=== PATIENT | male | born 1955 ===

== ENCOUNTER → 2017-09-03 | Outpatient (CLI) | payer OTHER ==
--- NOTE | 2017-09-08 15:05 | CPEKG ---
Heart Rate: 70 RR Interval: 857 P-R Interval: 192 QRSD Interval: 94 QT Interval: 416 QTC Interval: 449 P [place]: 44 QRS [place]: 31 T Wave [place]: 6 EKG Severity - NORMAL ECG - EKG Impression: SINUS RHYTHM EKG Impression: DELAYED R-WAVE PROGRESSION Electronically Signed By: Sheryl Ryder 08-Sep-2017 20:26:25
== END ==
LOC: FPAT 12:40
PROVIDERS: ATTEND Orthopaedic Surgery
DX: Z01.810 Encounter for preprocedural cardiovascular examination (principal); M25.551 Pain in right hip

== ENCOUNTER 2017-09-08 08:12 | Inpatient (IN) | payer OTHER ==
[2017-09-03 13:20] LABS: PLATELET COUNT 233 10^3/uL (150-400)
--- NOTE | 2017-09-06 18:51 | GHP ---
[f rep st] PREOP HISTORY AND PHYSICAL CURRENT COMPLAINT: Right hip pain. HISTORY OF PRESENT ILLNESS: The patient is a 61-year-old male with a several year history of right h ip pain worsening with use and with time despite multiple conservative measures. X-ray exam reveals [id number] arthritic changes. He wishes to have surgery in order to resolve the problem. He lists no drug allergies. CURRENT MEDICATIONS: Include atorvastatin, enoxaparin, lisinopril, Ventolin. 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 PAST SURGICAL HISTORY: Includes bilateral knee replacements and a left ACL reconstruction. SOCIAL HISTORY: He has never been a smoker and he is a social drinker. PHYSICAL EXAMINATION: HEENT: The patient's pupils are equal, round, and reactive to light. CHEST: Clear to auscultation. HEART: A regular rate and rhythm. ABDOMEN: Soft and nontender. EXTREMITI ES: He has limited range of motion, internal-external rotation to his hip and pain at the ends of th ose ranges of motion. X-ray exam revealed [id number]-[id number] osteoarthritic changes to the right hip. ASSESSMENT: The patient is status post a right hip osteoarthritis. PLAN: To take him to the operating room for multiple right total hip arthroplasty. /[id number]/MODL
[2017-09-08] MEDS ORDERED: LIDOCAINE 1% 2 ML INJ ID PRN (08:45)
[2017-09-08] MEDS ORDERED: LR 1,000 ML IV ONE (08:45)
[2017-09-08] MEDS ORDERED: BACITRACIN 50,000 UNITS/10 ML SYR IRR ONE (08:52)
[2017-09-08] MEDS ORDERED: POLYMYXIN B SULFATE 500,000 UNIT/10 ML SYR IRR ONE (08:53)
[2017-09-08] MEDS ORDERED: CALCIUM CHLORIDE 1 GM/10 ML INJ ONE (08:54)
[2017-09-08] MEDS ORDERED: BUPIVACAINE 0.5% 30 ML SDV ONE (08:54)
[2017-09-08] MEDS ORDERED: THROMBIN (BOVINE) 20,000 UNIT VIAL TP ONE (08:54)
[2017-09-08] MEDS ORDERED: TRANEXAMIC ACID 3,000 MG in NS (SYRINGE) 50 ML IRR ONE (09:01)
[2017-09-08] MEDS ORDERED: ROPIVACAINE 0.2% 80 MG, EPINEPHrine 0.2 MG, KETOROLAC TROMETHAMINE 30 MG, morphINE 10 M... IU ONE (09:01)
[2017-09-08] MEDS ORDERED: ceFAZolin 2 GM/DEXTROSE 100 ML IV ONE (09:01)
[2017-09-08] MEDS ORDERED: ACETAMINOPHEN 500 MG TAB PO ONE (09:01)
[2017-09-08] MEDS ORDERED: PREGABALIN 150 MG CAP PO ONE (09:01)
--- NOTE | 2017-09-08 09:01 | PDHPUP ---
History & Physical Update H&P update statement: This history and physical update is based on an assessment of the patient which was completed after admission or registration (within 24 hours), but prior to the surgery/procedure. H&P update: H&P reviewed & patient examined, no change in patient's condition since H&P completed
[2017-09-08] MEDS ORDERED: ALBUTEROL 60 PUFFS/8 GM MDI IH PRN (09:02)
[2017-09-08] MEDS ORDERED: MIDAZOLAM 2 MG/2 ML VIAL IVP ONE (09:20)
[2017-09-08] MEDS ORDERED: MIDAZOLAM 2 MG/2 ML VIAL ONE (09:22)
[2017-09-08] MEDS ORDERED: CEFAZOLIN 2 GM/DEXTROSE/100 ML BAG IV ONE (09:23)
--- NOTE | 2017-09-08 09:28 | PDANEPAE ---
ANE History of Present Illness DJD L hip s/f L ENRIQUE ANE Past Medical History - Cardiovascular History Hx Hypertension: Yes Hx Arrhythmias: No Hx Chest Pain: No Hx Coronary Artery / Peripheral Vascular Disease: No Hx CHF / Valvular Disease: No Hx Palpitations: No Cardiovascular History Comment: blood clot right leg 7 yrs - Pulmonary History Hx Asthma/Reactive Airway Disease: Yes Hx Recent Upper Respiratory Infection: No Hx Oxygen in Use at Home: No Hx Sleep Apnea: Yes Sleep Apnea Screening Result - Last Documented: Positive Pulmonary History Comment: seasonal allergens triggers asthma, uses inhaler. CHELSEY uses CPAP - Neurologic History Hx Cerebrovascular Accident: No Hx Seizures: No Hx Dementia: No - Endocrine History Hx Diabetes: No - Renal History Hx Renal Disorders: Yes Renal History Comment: post -op decrease kidney function - Liver History Hx Hepatic Disorders: No - Neurological & Psychiatric Hx Hx Neurological and Psychiatric Disorders: Yes Neurological / Psychiatric History Comment: tingling in right toes - Cancer History Hx Cancer: No - Congenital Disorder History Hx Congenital Disorders: Yes Congenital History Comment: hicklers syndrome - GI History Hx Gastrointestinal Disorders: No - Other Health History Other Health History: broken teeth in back top - Chronic Pain History Chronic Pain: No - Surgical History Prior Surgeries: 3 yrs ago parathyroidectomy ANE Review of Systems Review of Systems: - Exercise capacity METS (RN): 3 METS (EKG NSR) ANE Patient History - Allergies Allergies/Adverse Reactions: No Allergies [NKDA] Allergy (Verified 08/21/17 15:46) BANDAID Allergy (Mild, Uncoded 08/21/17 15:46) ITCHY, RASH, SORE - Home Medications Home medications: home medication list seen and reviewed Home Medications: Acetaminophen [Tylenol ES 500 mg (*)] 1,000 mg PO DAILY 08/21/17 [Last Taken Unknown] Albuterol [Proventil Inhaler HFA (*)] 1 puffs IH DAILY PRN 08/21/17 [Last Taken Unknown] Atorvastatin Calcium [Lipitor 10 mg (*)] 10 mg PO DAILY@1800 08/21/17 [Last Taken Unknown] Ibuprofen [Motrin (*)] 200 mg PO DAILY 08/21/17 [Last Taken Unknown] Lisinopril [Zestril 20 mg (*)] 20 mg PO DAILY 08/21/17 [Last Taken Unknown] Warfarin Sodium [Coumadin 2.5MG (*)] 2.5 mg PO MOWEFR@1800 08/21/17 [Last Taken Unknown] Warfarin Sodium [Coumadin 5MG (*)] 5 mg PO SUTUTHSA@1800 08/21/17 [Last Taken Unknown] - NPO status NPO Since - Liquids (Date): 09/08/17 NPO Since - Liquids (Time): 04:00 NPO Since - Solids (Date): 09/07/17 NPO Since - Solids (Time): 20:30 - Anes Hx Anes Hx: no prior problems - Smoking Hx Smoking Status: Never smoked - Alcohol Use Alcohol Use: Rarely - Family Anes Hx Family Anes Hx: none Family Hx Anesthesia Complications: NONE ANE Labs/Vital Signs - Labs Result Diagrams: 09/03/17 12:53 - Vital Signs Blood Pressure: 121/78 Heart Rate: 76 Respiratory Rate: 18 O2 Sat (%): 93 Height: 177.8 cm Weight: 149.685 kg ANE Physical Exam - Airway Neck exam: FROM Mallampati Score: Class 2 Mouth exam: normal dental/mouth exam - Pulmonary Pulmonary: no respiratory distress - Cardiovascular Cardiovascular: regular rate and rhythym - ASA Status ASA Status: III ANE Anesthesia Plan Anesthesia Plan: general endotracheal anesthesia, spinal (depending on INR-will await result)
[2017-09-08 09:35] LABS: INR 0.96 (0.83-1.16)
[2017-09-08] MEDS ORDERED: BUPIVACAINE/EPI 0.5% 30 ML SDV ONE (09:37)
[2017-09-08] MEDS ORDERED: fentaNYL 100 MCG/2 ML INJ ONE ×3 (09:41→13:26)
[2017-09-08] MEDS ORDERED: PROPOFOL/EMULSION 500 MG/50 ML BOTTLE IV ONE ×4 (09:41→11:23)
[2017-09-08] MEDS ORDERED: LIDOCAINE 2% JELLY 5 ML TUBE ONE (09:44)
[2017-09-08] MEDS ORDERED: ONDANSETRON 4 MG/2 ML VIAL ONE (10:40)
[2017-09-08] MEDS ORDERED: DEXAMETHASONE 4 MG/ML VIAL ONE (10:40)
[2017-09-08] MEDS ORDERED: THROMBIN (BOVINE) 5,000 UNIT VIAL TP ONE (10:48)
[2017-09-08] MEDS ORDERED: LABETALOL HCL 5 MG/ML 20 ML MDV IVP PRN (11:56)
[2017-09-08] MEDS ORDERED: oxyCODONE IR 5 MG TAB PO PRN ×2 (11:56→12:16)
[2017-09-08] MEDS ORDERED: NALOXONE HCL 0.4 MG/ML INJ IVP PRN (11:56)
[2017-09-08] MEDS ORDERED: ALBUTEROL 3 ML DEYVIAL IH PRN (11:56)
[2017-09-08] MEDS ORDERED: METOCLOPRAMIDE 10 MG/2 ML VIAL IVP PRN ×2 (11:56→12:16)
[2017-09-08] MEDS ORDERED: HYDROCODONE/APAP 5/325 TAB PO PRN (11:56)
[2017-09-08] MEDS ORDERED: ACETAMINOPHEN 500 MG TAB PO PRN (11:56)
[2017-09-08] MEDS ORDERED: MEPERIDINE 25 MG/0.5 ML AMP IVP PRN (11:56)
[2017-09-08] MEDS ORDERED: ONDANSETRON 4 MG/2 ML VIAL IVP PRN ×2 (11:56→12:16)
[2017-09-08] MEDS ORDERED: PROMETHAZINE HCL 25 MG/ML INJ IVP PRN ×2 (11:56→12:16)
[2017-09-08] MEDS ORDERED: DEXAMETHASONE 4 MG/ML VIAL IVP PRN (11:56)
[2017-09-08] MEDS ORDERED: PHENYLEPHRINE HCL 100 MCG/ML SYR IVP PRN (11:56)
[2017-09-08] MEDS ORDERED: LR 500 ML IV PRN (11:56)
[2017-09-08] MEDS ORDERED: MAGNESIUM HYDROXIDE 30 ML UDCUP PO PRN (12:16)
[2017-09-08] MEDS ORDERED: POLYETHYLENE GLYCOL 3350 17 GM PKT PO PRN (12:16)
[2017-09-08] MEDS ORDERED: LACTULOSE 20 GM/30 ML UDCUP PO PRN (12:16)
[2017-09-08] MEDS ORDERED: TEMAZEPAM 15 MG CAP PO PRN (12:16)
[2017-09-08] MEDS ORDERED: diphenhydrAMINE 25 MG CAP PO PRN (12:16)
[2017-09-08] MEDS ORDERED: DIPHENOXYLATE/ATROPINE LOMOTIL 1 TAB PO PRN (12:16)
[2017-09-08] MEDS ORDERED: ONDANSETRON DISINTEGRATING 4 MG TAB PO PRN (12:16)
[2017-09-08] MEDS ORDERED: BISACODYL 10 MG SUPP PR PRN (12:16)
[2017-09-08] MEDS ORDERED: PROMETHAZINE HCL 25 MG SUPPR PR PRN (12:16)
[2017-09-08] MEDS ORDERED: CYCLOBENZAPRINE 10 MG TAB PO PRN (12:16)
[2017-09-08] MEDS ORDERED: TAPENTADOL HCL 50 MG TAB PO PRN (12:16)
--- NOTE | 2017-09-08 12:16 | POSTOPPROG ---
Post Op Note Date of Operation: 09/08/17 Surgeon: Sangeetha Rodriguez Lubrication Servicer: boone Anesthesiologist: selvin Anesthesia: Epidural, LMA Pre-op Diagnosis: r hip oa Procedure: r danie with fluoro Inf/Abcess present in the surg proc area at time of surgery?: No Depth: Deep Incisional (Fascial) EBL: 100-500
[2017-09-08] MEDS ORDERED: LR 1,000 ML IV SCH (12:30)
[2017-09-08] MEDS: fentaNYL 100 MCG/2 ML INJ IVP PRN ×3 (13:01→13:28)
--- NOTE | 2017-09-08 13:38 | GOP ---
[f rep st] OPERATIVE REPORT DATE OF OPERATION: 09/08/2017 SURGEON: Sangeetha Rodriguez MD FISH PROTECTOR: Jared Orantes, CSFA, LSA, whose presence was medically necessary. ANESTHESIA: By spinal, plus IV sedation. PREOPERATIVE DIAGNOSIS: Right hip osteoarthritis. POSTOPERATIVE DIAGNOSIS: Right hip osteoarthritis. PROCEDURE PERFORMED: Right total hip arthroplasty with fluoroscopy. FINDINGS: INDICATIONS: This is a 61-year-old male with a long history of right hip pain worsening with use wit h time. X-ray exam reveals [id number]-[id number] osteoarthritic changes. He wishes to have surgery in order to resolve the problem. DESCRIPTION OF PROCEDURE: The patient was brought to the operating room after the right side had bee n identified as the correct side by the patient, nurse and physician. Once in the operating room, he was given an epidural nerve block and then placed supine on a traction table with a well-padded kathy efrem post. He was given IV sedation, and both legs were placed within their appropriate leg orozco. Fluoroscopy was then used to ensure proper positioning of the pelvis. Once in position, the arch ta ble was then locked into place. The right hip and flank were then sterilely prepped and draped in th e usual fashion using GSI solution. Once prepped and draped, a linear incision was made starting 2 c m lateral and inferior to the ASIS and heading in a 15-degree posterior direction, with sharp dissect ion carried down through the skin and subcutaneous layers. Bleeding was controlled using electrocaut samira. Dissection was down on the fascia overlying the TFL with the incision made in line with the fib ers. The TFL belly was retracted laterally. Deeper dissection was carried down into the deep portio n of the fascial sheath where the circumflex vessels were located and then cauterized. Deeper dissec tion was carried down onto the hip capsule, with a blunt Cobra retractor placed superior and inferior to the femoral neck. An anterior acetabular retractor was used to gain further access. The anterio r capsule was excised in its entirety exposing the femoral neck. Oscillating saw was used to cut acr oss just above the intertrochanteric line. The leg was then externally rotated to 40 degrees, and a corkscrew was used to remove the femoral head. The pulvinar as well as the labrum was removed from a round the acetabulum. Sequential reamers were then used starting at a size 54 and extending up to a size 57, which was noted to fit securely. The 57 trial was noted to fit well, and fluoroscopy was us ed to ensure proper positioning. Therefore, a 58 mm Trident II Tritanium acetabular shell was put in to place, noted to fit securely. Screw was placed in the superior and posterior portions of the cup. Once in place and checked under fluoroscopy, a 58 x 32 mm ceramic liner was placed inside and noted to fit well. Attention was then turned to the proximal femur which was externally rotated to 90 deg elder. The capsule was then dissected from the anterior and superior portions of the femoral neck, wi th the superior portion of the femoral neck removed using a rongeur and then a curette used to remove some of the medullary bone within the femur. Canal finder was passed within the femur, and then, se quential broaches were used up to a size 6 which was noted to fit securely. A trial reduction was pe rformed and noted that he had good fill of the proximal femur as well as good lengthening. Therefore , the hip was re-dislocated. A size 6 Accolade II 120-degree neck stem was put into place, noted to fit securely. Another trial reduction was performed with a +0 head, was noted to have good length an d good stability. The hip was therefore dislocated again. The trunnion was cleaned and dried, and a 32 +0 Trident ceramic head was put into place. The hip was then relocated. Joint cocktail was inje cted in the posterior capsule and the periosteum around the acetabulum of proximal femur. Tranexamic acid was irrigated through the wound. The wound was then closed using 0 Vicryl suture in a running whipstitch for the fascial layer overlying the TFL with plasma gel placed within the TFL sheath. 0 V icryl and 2-0 Vicryl suture were used to close the subcutaneous layers, and 3-0 V-Loc suture in a run kei subcuticular stitch for the skin. The wound was then dressed with Steri-Strips, Xeroform, 4 x 4 , and Tegaderm. He was completely undraped in the operating room, had both legs taken out of their a ppropriate leg orozco. The peroneal post was removed. Leg lengths were noted to be nearly equal. Ramila mosley was then transferred onto a stretcher and sent to recovery room in good condition. /[id number]/MODL
--- NOTE | 2017-09-08 14:25 | PDMN ---
Medical Necessity Medical necessity: Patient meets inpatient criteria per physician note and [facility] -560 Hip Arthroplasty (CPT 37966/ Medicare inpatient-only surgery.)
[2017-09-08] MEDS ORDERED: ATORVASTATIN CALCIUM 10 MG TAB PO SCH (18:00)
[2017-09-08] MEDS ORDERED: WARFARIN SODIUM 5 MG TAB PO SCH (18:00)
[2017-09-08] MEDS: ACETAMINOPHEN 325 MG TAB PO SCH (18:30)
[2017-09-08] MEDS: ceFAZolin 2 GM/DEXTROSE 100 ML IV SCH (18:33)
[2017-09-08] MEDS: traMADol 50 MG TAB PO SCH (18:33)
[2017-09-08] MEDS: KETOROLAC 15 MG/1 ML SDV IVP SCH (18:33)
[2017-09-08] MEDS: SENNOSIDES/DOCUSATE SODIUM TAB PO SCH (22:13)
[2017-09-08] MEDS: FAMOTIDINE 20 MG TAB PO SCH (22:13)
[2017-09-09] MEDS: ACETAMINOPHEN 325 MG TAB PO SCH ×3 (01:12→12:18)
[2017-09-09] MEDS: KETOROLAC 15 MG/1 ML SDV IVP SCH ×3 (01:13→12:18)
[2017-09-09] MEDS: traMADol 50 MG TAB PO SCH ×3 (01:20→12:18)
[2017-09-09] MEDS: ceFAZolin 2 GM/DEXTROSE 100 ML IV SCH (02:15)
[2017-09-09] MEDS ORDERED: LISINOPRIL 20 MG TAB PO SCH (09:00)
[2017-09-09] MEDS ORDERED: RIVAROXABAN 10 MG TAB PO SCH (09:00)
[2017-09-09] MEDS: SENNOSIDES/DOCUSATE SODIUM TAB PO SCH (10:00)
[2017-09-09] MEDS: FAMOTIDINE 20 MG TAB PO SCH (10:00)
--- NOTE | 2017-09-09 10:05 | POSTANESTH ---
Post Anesthetic Evaluation Cardiovascular Status: Normal, Stable Respiratory Status: Normal, Stable Level of Consciousness/Mental Status: Can Participate in Eval Pain Control: Adequate, Prn Tx Ordered Nausea/Vomiting Control: Adequate, Prn Tx Ordered Complications Possibly Related to Anesthesia: None Noted
--- NOTE | 2017-09-09 14:26 | ASMTCMCOM ---
CM Note CM Note Notes: Pt s/p OA of hip. PT/OT clear pt for home. Anticipate pt will d/c when medically stable with family support. No CM d/c needs identified. CM available for changes/needs. Date Signed: 09/09/2017 02:26 PM Electronically Signed By:DIDI Meraz
--- NOTE | 2017-09-09 15:09 | SOAPPROG ---
SOAP Progress Note Assessment/Plan: Assessment: Plan: Subjective: states he's doing well and ready for home dressing C&D with foot NVI DC to home Objective: Vital Signs Temp Pulse Resp BP Pulse Ox 36.8 C 91 16 113/73 91 L 09/09/17 11:26 09/09/17 11:26 09/09/17 08:27 09/09/17 11:26 09/09/17 11:26 Laboratory Results 09/09/17 04:39 09/08/17 09/09/17 09/10/17 05:59 05:59 05:59 Intake Total 2400 450 Output Total 975 Balance 1425 450 PT 13.0 SEC (12.0-15.0) 09/08/17 09:00 INR 0.96 (0.83-1.16) 09/08/17 09:00 ICD10 Worksheet Patient Problems: Problems Problem Status Onset Hip arthritis Acute - ICD10 Problem Qualifiers (1) Hip arthritis
[2017-09-09 15:10] VITALS: BP 127/73
[2017-09-09] MEDS ORDERED: WARFARIN SODIUM 2.5 MG TAB PO SCH (18:00)
== END 2017-09-09 16:32 | disposition home or self-care (01) | DRG 470 ==
LOC: F3N 08:12
PROVIDERS: ADMIT Orthopaedic Surgery; ATTEND Orthopaedic Surgery
PROC: 0SR90JZ Replacement of Right Hip Joint with Synthetic Substitute, Open Approach (ICD-10-PCS; principal; 2017-09-08 09:45)
DX: M16.11 Unilateral primary osteoarthritis, right hip (principal); J45.909 Unspecified asthma, uncomplicated; E78.00 Pure hypercholesterolemia, unspecified; Q89.8 Other specified congenital malformations; I10 Essential (primary) hypertension; G47.33 Obstructive sleep apnea (adult) (pediatric)
CPT/HCPCS: 97116-GP; 97162-GP; 97165-GO; C1713; J0171; J0690; J1100; J1885; J2250; J2270; J2370; J2405; J2704; J2795; J3010